=== PATIENT | female | born 1950 | race Caucasian/White ===

== ENCOUNTER → 2017-06-09 | Outpatient (CLI) | payer OTHER | LOC: BHFA 14:45 | PROVIDERS: ATTEND Internal Medicine Cardiovascular Disease | DX: R06.02 Shortness of breath (principal) ==

== ENCOUNTER → 2017-06-28 | Outpatient (CLI) | payer OTHER ==
[~2017-06-28] MED LIST: LIDOCAINE 1% 300 MG/30 ML SDV ONE
== END ==
LOC: FIMAGING 10:25
PROVIDERS: ATTEND Internal Medicine
DX: R18.8 Other ascites (principal); R16.1 Splenomegaly, not elsewhere classified; K74.60 Unspecified cirrhosis of liver

== ENCOUNTER → 2017-07-13 | Outpatient (CLI) | payer OTHER ==
[~2017-07-13] MED LIST changes: +IOPAMIDOL (ISOVUE 370) 100 ML BTL IV ONE; -LIDOCAINE 1% 300 MG/30 ML SDV ONE
== END ==
LOC: FIMAGING 08:02
PROVIDERS: ATTEND Internal Medicine Critical Care Medicine
DX: R06.02 Shortness of breath (principal); K74.60 Unspecified cirrhosis of liver; R16.1 Splenomegaly, not elsewhere classified; I86.2 Pelvic varices; I86.4 Gastric varices; J43.9 Emphysema, unspecified; R93.5 Abnormal findings on diagnostic imaging of other abdominal regions, including retroperitoneum
CPT/HCPCS: 71275; Q9967

== ENCOUNTER → 2017-07-23 | Outpatient (CLI) | payer OTHER | LOC: CIMAGING 14:50 | PROVIDERS: ATTEND Family Medicine | DX: R14.0 Abdominal distension (gaseous) (principal); I50.9 Heart failure, unspecified; Z96.641 Presence of right artificial hip joint | CPT/HCPCS: 74022-PO ==

== ENCOUNTER 2017-07-28 12:09 | Emergency (ER) | payer OTHER ==
[2017-07-28] MEDS ORDERED: NS 500 ML IV ONE (12:31)
[2017-07-28] MEDS ORDERED: ONDANSETRON 4 MG/2 ML VIAL IVP ONE (12:31)
[2017-07-28] MEDS ORDERED: IOPAMIDOL (ISOVUE-300) 100 ML BTL ONE (12:39)
--- NOTE | 2017-07-28 12:49 | EDPHY ---
H & P Time Seen by Provider: 07/28/17 12:22 HPI/ROS: HPI Nausea vomiting, abdominal distension. 67-year-old female by private vehicle with her . This patient has been dealing with chronic constipation and over the last couple of days a sensation of worsening abdominal distention particularly a on the right upper aspect of her abdomen and nausea with 2 episodes of vomiting in that time span. She has been managed by her primary care physician, Dr. Ochoa. She has a recent upright abdominal x-ray series which showed constipation. She spoke with her primary care physician today and explained that she had some vomiting yesterday and worsening distension today. She was instructed to come to the emergency department for CT imaging of her abdomen and pelvis to evaluate for obstruction. She states her last meal was last night. She ate some salad at this time. ROS: Constitutional: No fever, no chills. No weakness. Eyes: No discharge. No changes in vision. ENT: No sore throat. No nasal congestion or rhinorrhea. Respiratory: No cough. No shortness of breath. Cardiac: No chest pain, no palpitations. Gastrointestinal: As above, no diarrhea. Genitourinary: No hematuria. No dysuria or increased frequency with urination. Musculoskeletal: No back pain. No neck pain. No myalgias or arthralgias. Skin: No rashes. Neurological: No headache. No focal weakness or altered sensation. 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 Enlarged spleen, history of C diff. Social history: Nonsmoker. No alcohol. Here with her . Physical Exam: General Appearance: Alert, no distress. Moderately obese. This patient is responding to questions appropriately and in full sentences. This patient appears well-hydrated and well-nourished. Eyes: Pupils equal and round no pallor or injection. No lid edema, erythema or injection. Respiratory: There are no retractions, lungs are clear to auscultation with good air movement bilaterally. Cardiovascular: Regular rate and rhythm. No murmur. Gastrointestinal: Obese habitus. Abdomen is soft with mild to moderate right upper quadrant tenderness on palpation, no masses, bowel sounds normal. No focal tenderness at McBurney's point. No Rich sign. Neurological: Motor sensory function is grossly intact. Cranial nerves are normal. Gait is normal. Skin: Warm and dry, no rashes. Musculoskeletal: Neck is supple and nontender. Extremities are symmetrical. All joints range without pain or impingement. Psychiatric: No agitation. No depression. 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 However, she does have significantly more portal venous congestion , varices and splenic congestion. Cirrhosis and small ascites noted. This appears relatively unchanged from the prior study. Moderate stool everywhere. No bowel obstruction. No abscess. No evidence of a surgical abdomen. Results were discussed with staff radiologist Dr. Damian Troncoso. Please see his report for further details. CT compared to prior study from 10/16/2014. Procedures: Emergency department course: Triage vital signs reviewed. IV was placed. She was started on IV normal saline with 500 cc to be given over the next hour. She was given 4 mg of IV Zofran. I discussed CT scan to evaluate for obstruction. She consents. INR 2.82 on July 20. 2:25 p.m., patient re-evaluated. Resting comfortably at this time. Results of her blood work and CT imaging discussed in detail with her and her . She presents essentially today with a worsening of her chronic condition. Repeat abdominal exam at this time she is soft, nontender nondistended. I a discussed admission with her. At this time she does not want to be admitted. She wants to get with stool is in her out and see if she feels better. I explained to her that she is not obstructed. Plan will be to prescribe her a half prep of GoLYTELY for constipation. If she is not feeling better after this or if her condition worsens at all she will return to the emergency department at [facility] for further evaluation and likely admission. She is in agreement with this plan. Follow-up and return to emergency department precautions have been reviewed with her and her thoroughly. All of their questions were answered. She was discharged from the emergency department in good condition. Differential Diagnosis: The differential diagnosis on this patient includes but is not limited to constipation obstipation, bowel obstruction. This represents a partial list of diagnoses considered. These considerations are based on history, physical exam , past history, reassessment and diagnostic testing. Smoking Status: Former smoker Constitutional: Initial Vital Signs Temperature (C) 37.1 C 07/28/17 12:17 Heart Rate 94 07/28/17 12:17 Respiratory Rate 20 07/28/17 12:17 Blood Pressure 131/76 H 07/28/17 12:17 O2 Sat (%) 64 L 07/28/17 12:17 O2 Delivery Mode Room Air Allergies/Adverse Reactions: amoxicillin Allergy (Verified 07/28/17 12:21) Sulfa (Sulfonamide Antibiotics) Allergy (Verified 07/28/17 12:21) AMOXICILLIN Allergy (Uncoded 07/28/17 12:21) Home Medications: Medication Instructions Recorded Furosemide [Lasix 40 MG (*)] 80 mg PO DAILY@07/27/14 Herbals/Supplements -Info Only 1 ea PO DAILY 07/27/14 Spironolactone [Aldactone] 200 mg PO DAILY 07/27/14 Warfarin Sodium [Coumadin 5MG (*)] 5 mg PO DAILY@07/27/14 rOPINIRole HCL [Requip 2mg (*)] 2 mg PO 07/30/14 oxyCODONE IR [Oxycodone Ir (*)] 10 mg PO HS PRN 10/16/14 Polyethylene Glycol 3350 [Miralax 17 gm PO DAILY PRN #0 pkt 10/18/14 17 gm (*)] LYRICA 07/28/17 Lunesta 07/28/17 Ondansetron Odt [Zofran Odt 4 mg 4 mg PO Q4PRN PRN #10 tab 07/28/17 (*)] Peg 3350/Na Sulf,Bicarb,Cl/KCl 4,000 ml PO ONCE #1 btl 07/28/17 [Golytely (RX)] Medical Decision Making - Data Points Laboratory Results: Laboratory Results 07/28/17 12:40 07/28/17 07/28/17 12:40 12:40 WBC 5.66 10^3/uL 10^3/uL (3.80-9.50) RBC 4.42 10^6/uL 10^6/uL (4.18-5.33) Hgb 13.0 g/dL g/dL (12.6-16.3) Hct 40.4 % % (38.0-47.0) MCV 91.4 fL fL (81.5-99.8) MCH 29.4 pg pg (27.9-34.1) MCHC 32.2 g/dL L g/dL (32.4-36.7) RDW 16.0 % H % (11.5-15.2) Plt Count 85 10^3/uL L 10^3/uL (150-400) MPV 12.9 fL H fL (8.7-11.7) Neut % (Auto) 73.0 % % (39.3-74.2) Lymph % (Auto) 13.3 % L % (15.0-45.0) [place] % (Auto) 9.2 % % (4.5-13.0) Eos % (Auto) 3.2 % % (0.6-7.6) Baso % (Auto) 0.9 % % (0.3-1.7) Nucleat RBC Rel Count 0.0 % % (0.0-0.2) Absolute Neuts (auto) 4.14 10^3/uL 10^3/uL (1.70-6.50) Absolute Lymphs (auto) 0.75 10^3/uL L 10^3/uL (1.00-3.00) Absolute Monos (auto) 0.52 10^3/uL 10^3/uL (0.30-0.80) Absolute Eos (auto) 0.18 10^3/uL 10^3/uL (0.03-0.40) Absolute Basos (auto) 0.05 10^3/uL 10^3/uL (0.02-0.10) Absolute Nucleated RBC 0.00 10^3/uL 10^3/uL (0-0.01) Immature Gran % 0.4 % % (0.0-1.1) Immature Gran # 0.02 10^3/uL 10^3/uL (0.00-0.10) Lipase 28 IU/L IU/L (23-300) Medications Given: Discontinued Medications Sodium Chloride (Ns) 500 mls @ 0 mls/hr IV EDNOW ONE; Wide Open PRN Reason: Protocol Stop: 07/28/17 12:32 Last Admin: 07/28/17 13:02 Dose: 500 mls Lorazepam (Ativan Injection) 0.5 mg IVP EDNOW ONE Stop: 07/28/17 13:06 Last Admin: 07/28/17 13:10 Dose: 0.5 mg Ondansetron HCl (Zofran) 4 mg IVP EDNOW ONE Stop: 07/28/17 12:32 Last Admin: 07/28/17 12:57 Dose: 4 mg Point of Care Test Results: Urine Dip Collection Date 07/28/17 Collection Time 12:38 Specific [place] (1.002-1.030) 1.010 PH (5.0-7.5) 7.0 Leukocytes (Negative) Negative Nitrites (Negative) Negative Protein (Negative) Negative Glucose (Negative) Negative Ketones (Negative) Negative Urobilnogen (0.2-1.0 EU) 0.2 Bilirubin (Negative) Negative Blood (Negative) Negative Departure - Departure Disposition: Home, Routine, Self-Care Clinical Impression: Constipation, Portal venous hypertension, Cirrhosis, Ascites, Mesenteric venous thrombosis Condition: Good Instructions: Constipation (ED), High Fiber Diet (ED) Additional Instructions: Read and follow provided instructions. Follow-up with your primary care physician and wedding florist in 1-2 days at least by phone to make sure they are aware of your CT scan results. Take medication as prescribed. I have prescribed you GoLYTELY for constipation. You want to drink half of this preparation. Discussed with pharmacist for details. Take medication as prescribed for nausea. [facility] at the [facility] for worsening symptoms, vomiting and inability to keep fluids down despite medications, worsening abdominal pain, difficulty breathing or other serious concerns. Referrals: Hector Carpenter MD [Primary Care Provider] - As per Instructions Ponce Hawkins [Medical Doctor] - As per Instructions Prescriptions: Ondansetron Odt [Zofran Odt 4 mg (*)] 4 mg PO Q4PRN PRN #10 tab PRN Reason: For Nausea & Vomiting Peg 3350/Na Sulf,Bicarb,Cl/KCl [Golytely (RX)] 4,000 ml PO ONCE #1 btl
[2017-07-28] MEDS ORDERED: LORazepam 2 MG/ML INJ IVP ONE (13:05)
[2017-07-28 13:52] LABS: PLATELET COUNT 85 10^3/uL (150-400)
[2017-07-28 14:36] VITALS: BP 108/69
== END 2017-07-28 14:53 | disposition home or self-care (01) ==
LOC: CED 12:09
DX: K59.00 Constipation, unspecified (principal); K76.6 Portal hypertension; K74.60 Unspecified cirrhosis of liver; R18.8 Other ascites; K55.069 Acute infarction of intestine, part and extent unspecified; E86.9 Volume depletion, unspecified; Z79.01 Long term (current) use of anticoagulants; Z87.891 Personal history of nicotine dependence
CPT/HCPCS: 74177; 96361; 96374; 96375; 99285; J2060; J2405; Q9967; 80053-PO

== ENCOUNTER → 2018-08-08 | Outpatient (CLI) | payer OTHER | LOC: FIMAGING 08:15 ==